=== PATIENT | female | born 1995 | race Hispanic/Latino ===

== ENCOUNTER 2023-03-18 15:06 | Emergency (ER) | payer BC, MEDICAID, SELFPAY ==
[2023-03-18 15:50] LABS: BHCG - Serum POSITIVE (NEGATIVE); Pregs Control Background? CLEAR/WHITE (CLR/WHITE); Pregs Control Bar Appear? YES (CONTROL BAR)
== END 2023-03-18 19:24 | disposition home or self-care (01) ==
LOC: ERS 15:06
DX: O99.611 Diseases of the digestive system complicating pregnancy, first trimester (principal); Z3A.01 Less than 8 weeks gestation of pregnancy
CPT/HCPCS: 36415; 76856; 84702; 84703; 99283